=== PATIENT | female | born 1970 | race Caucasian/White ===

== ENCOUNTER 2024-05-13 17:58 | Emergency (ER) | payer OTHER ==
[~2024-05-13] VITALS: Ht 177.8 cm; Wt 108.8 kg
[2024-05-13] MEDS ORDERED: KETOROLAC TROMETHAMINE 30 MG/ML SDV IM ONE (18:55)
[2024-05-13] MEDS ORDERED: METHOCARBAMOL 500 MG/TAB PO ONE (18:55)
[2024-05-13] MEDS ORDERED: DEXAMETHASONE SOD. PHOSPHATE 10 MG/ML VIAL IM ONE (18:55)
[2024-05-13] MEDS ORDERED: CYCLOBENZAPRINE10 MG PO (20:02)
[2024-05-13] MEDS ORDERED: TRAMADOL HYDROC50 M1 PO (20:02)
[2024-05-13] MEDS ORDERED: NAPROXEN500 MG PO (20:02)
[2024-05-13 20:30] VITALS: BP 129/87
== END 2024-05-13 20:30 | disposition home or self-care (01) | DRG 552 ==
LOC: ED 17:58
DX: M54.32 Sciatica, left side (principal)